=== PATIENT | female | born 1985 | race American Indian/Alaskan Native ===

== ENCOUNTER 2018-05-17 17:26 | Inpatient (IN) | payer SELFPAY ==
[2018-05-17] MEDS ORDERED: LACTATED RINGERS 1,000 ML ONE (17:59)
[2018-05-17] MEDS ORDERED: STADOL ONE (18:10)
[2018-05-17] MEDS ORDERED: SUBLIMAZE IV PRN (18:11)
[2018-05-17] MEDS ORDERED: STADOL IV PRN (18:11)
[2018-05-17] MEDS ORDERED: ZOFRAN IV PRN ×2 (18:11→20:01)
[2018-05-17] MEDS ORDERED: XYLOCAINE 2% INFILTRATI ONE (18:11)
[2018-05-17] MEDS ORDERED: MINERAL OIL PO PRN (18:11)
[2018-05-17] MEDS ORDERED: BRETHINE IVP PRN (18:11)
[2018-05-17] MEDS ORDERED: BRETHINE SUB-Q PRN (18:11)
--- NOTE | 2018-05-17 18:11 | History and Physical Report ---
History of Present Illness Date of examination: 05/17/18 Date of admission: 05/17/18 17:54 Chief complaint: Labor History of present illness: Pt is a 32yo BF EDC 05/24/18; EGA 39 0/7 weeks presents to L&D complaining of RUC's q 3-4 mins. She received late care at [facility] since 31 weeks and course has been unremarkable. records are available and GBS is Negative. Past History Past Medical History: no pertinent history Past Surgical History: no surgical history Social history: no significant social history, single - Obstetrical History Expected Date of Delivery: 05/24/18 Actual Gestation: 39 Week(s) 0 Day(s) : 2 Review of Systems All systems: negative - Vital Signs Vital signs: Vital Signs Temp Pulse Resp BP 98.3 F 90 22 135/90 05/17/18 17:33 05/17/18 17:33 05/17/18 17:33 05/17/18 17:33 Temp Pulse Resp BP Pulse Ox 98.3 F 90 22 135/90 05/17/18 17:33 05/17/18 17:33 05/17/18 17:33 05/17/18 17:33 - Physical Exam Breasts: Positive: deferred Cardiovascular: Regular rate Lungs: Positive: Clear to auscultation Abdomen: Positive: normal appearance Genitourinary (Female): Positive: normal external genitalia Vagina: Positive: normal moisture Uterus: Positive: enlarged Extremities: Positive: normal - Obstetrical FHR: category 1 Uterine Contraction Monitor Mode: External Cervical Dilatation: 8 (per nurse) Cervical Effacement Percentage: 100 (per nurse) station: -1 Uterine Contraction Pattern: Regular Uterine Tone Measurement Phase: Contraction Uterine Contraction Intensity: Strong/Firm Results All other labs normal. Assessment and Plan - Patient Problems (1) 39 weeks gestation of Onset Date: 05/17/18 Current Visit: Yes Status: Acute Plan to address problem: A: IUP @ 39 0/7 weeks in labor Insufficient care P: Admit to L&D for expectant vaginal delivery. (2) Insufficient care in third trimester Onset Date: 05/17/18 Current Visit: Yes Status: Acute
[2018-05-17 18:29] LABS: Hematocrit 40.4 % (30.3-42.9); Hemoglobin 13.6 gm/dl (10.1-14.3); Mean Corpuscular HGB Conc 34 % (30-34); Mean Corpuscular Volume 90 fl (79-97); Platelet Count 158 K/mm3 (140-440); Red Blood Count 4.47 M/mm3 (3.65-5.03); Red Cell Distribution Width 14.4 % (13.2-15.2)
[2018-05-17] MEDS ORDERED: LACTATED RINGERS 1,000 ML IV SCH (19:00)
[2018-05-17] MEDS ORDERED: PITOCin/NS 20 UNIT/1000ML DRIP 20 UNITS/1,000 ML BAG IV SCH ×2 (19:00→21:00)
[2018-05-17] MEDS ORDERED: PITOCin/NS 30 UNIT/500ML 30 UNITS/500 ML BAG IV SCH (19:00)
--- NOTE | 2018-05-17 19:59 | Procedure Note ---
OB Delivery Note - Delivery Date of Delivery: 05/17/18 Surgeon: SATNINO ANDREWS Estimated blood loss: 100cc - Vaginal Delivery presentation: vertex Delivery position: OA Intrapartum events: precipitous labor- <3hr Delivery induction: none Delivery augmentation: rupture of membranes Delivery monitor: external FHT, external uterine Route of delivery: Delivery placenta: spontaneous Delivery cord: 3 umbilical vessels Episiotomy: none Delivery laceration: 2nd degree (perineal) Delivery repair: vicryl Anesthesia: local Delivery comments: delivered OA and placed on Mom's chest for [id number] bonding and delayed cord clamping - A at 1 minute: 8 at 5 minutes: 9 Gender: Female (3287gms)
[2018-05-17] MEDS ORDERED: LANSINOH TP PRN (20:01)
[2018-05-17] MEDS ORDERED: TYLENOL PO PRN (20:01)
[2018-05-17] MEDS ORDERED: MILK OF MAGNESIA PO PRN (20:01)
[2018-05-17] MEDS ORDERED: DULCOLAX PR PRN (20:01)
[2018-05-17] MEDS ORDERED: PHENERGAN PR PRN (20:01)
[2018-05-17] MEDS ORDERED: TUCKS PAD TP PRN (20:01)
[2018-05-17] MEDS ORDERED: BENADRYL PO PRN (20:01)
[2018-05-17] MEDS ORDERED: PHENERGAN PO PRN (20:01)
[2018-05-17] MEDS ORDERED: NORCO 5/325 PO PRN (20:01)
[2018-05-17] MEDS ORDERED: SODIUM CHLORIDE FLUSH SYRINGE 10 ML IV SCH (21:00)
[2018-05-17] MEDS: IBUPROFEN PO SCH (21:00)
[2018-05-17] MEDS: FEOSOL PO SCH (22:00)
[2018-05-18] MEDS: DERMOPLAST TP PRN ×2 (04:10→21:59)
[2018-05-18] MEDS: IBUPROFEN PO SCH ×4 (04:10→20:27)
[2018-05-18] MEDS ORDERED: BOOSTRIX IM ONE (06:00)
[2018-05-18 08:38] LABS: Hematocrit 30.8 % (30.3-42.9); Hemoglobin 10.4 gm/dl (10.1-14.3)
[2018-05-18] MEDS: FEOSOL PO SCH ×2 (09:18→22:00)
[2018-05-18] MEDS ORDERED: PRENATAL VITAMIN PO SCH (10:00)
--- NOTE | 2018-05-18 12:40 | Progress Note ---
Assessment and Plan - Patient Problems (1) 39 weeks gestation of Onset Date: 05/17/18 Current Visit: Yes Status: Resolved (2) Insufficient care in third trimester Onset Date: 05/17/18 Current Visit: Yes Status: Resolved (3) (normal spontaneous vaginal delivery) Onset Date: 05/18/18 Current Visit: Yes Status: Resolved Plan to address problem: A: S/P - PPD #1 Doing well Asymptomatic anemia - stable P: May go home tomorrow. (4) Acute blood loss anemia Onset Date: 05/18/18 Current Visit: Yes Status: Resolved Subjective - Subjective Date of service: 05/18/18 Principal diagnosis: s/p - PPD #1 Interval history: Pt is feeling well without complaints. Bleeding improved. Patient reports: appetite normal, voiding normally, pain well controlled, fla tus, ambulating normally, no dizzy ambulation, no nauseated [place]: doing well, bottle feeding Objective - Vital Signs Latest vital signs: Vital Signs Temp Pulse Resp BP BP Pulse Ox 05/18/18 09:55 98.2 F 84 20 119/79 05/18/18 04:40 98.1 F 68 20 102/63 100 05/17/18 23:40 98.2 F 84 20 118/71 100 05/17/18 21:12 90 147/82 05/17/18 20:57 93 H 144/87 05/17/18 20:42 92 H 142/83 05/17/18 20:27 89 156/76 05/17/18 20:16 100 H 159/79 05/17/18 19:57 95 H 121/70 05/17/18 19:21 90 149/89 05/17/18 19:19 78 140/86 05/17/18 18:45 98.3 F 05/17/18 17:33 98.3 F 90 22 135/90 135/90 Intake and Output 05/17/18 05/18/18 05/18/18 22:59 06:59 14:59 Intake Total 120 Output Total 200 600 Balance -200 -600 120 Intake: Oral 120 Output: Urine 200 600 Void 200 600 Other: Total, Intake Amount 120 Total, Output Amount 200 600 Weight 75.75 kg Estimated Blood Loss 100 - Exam Breasts: Present: deferred Abdomen: Present: normal appearance, soft Uterus: Present: normal, firm, fundal height below umbilicus Extremities: Present: normal - Labs Labs: Laboratory Tests 05/17/18 05/17/18 05/17/18 18:14 18:14 18:14 WBC 8.4 RBC 4.47 Hgb 13.6 Hct 40.4 MCV 90 MCH 31 MCHC 34 RDW 14.4 Plt Count 158 RPR Nonreactive Blood Type B POSITIVE Antibody Screen Negative 05/18/18 08:06 WBC RBC Hgb 10.4 D Hct 30.8 D MCV MCH MCHC RDW Plt Count RPR Blood Type Antibody Screen
[2018-05-18] MEDS ORDERED: M-M-R II VACCINE SUB-Q ONE (20:01)
--- NOTE | 2018-05-19 12:22 | Discharge Summary ---
Providers - Providers Date of Admission: 05/17/18 17:54 Date of discharge: 05/19/18 Attending physician: SANTINO ANDREWS Primary care physician: SANTINO ANDREWS Hospitalization Reason for admission: active labor, IUP at term Delivery: Episiotomy: none Laceration: 2nd degree Other procedures: none complications: none Discharge diagnosis: IUP at term delivered [place] baby: female Hospital course: Unremarkable. Condition at discharge: Good Disposition: DC-01 TO HOME OR SELFCARE - Discharge Diagnoses (1) 39 weeks gestation of Status: Resolved (2) Insufficient care in third trimester Status: Resolved (3) (normal spontaneous vaginal delivery) Status: Resolved (4) Acute blood loss anemia Status: Resolved Plan - Discharge Medications Prescriptions: Ferrous Sulfate [Feosol 325 MG tab] 325 mg PO BID #60 tablet Ibuprofen [Motrin 600 MG tab] 600 mg PO Q6HR #30 tablet Vit-Fe Fumar-FA [ Vitamin] 1 each PO QDAY #30 tablet - Provider Discharge Summary Activity: routine, no sex for 6 weeks, no heavy lifting 4 weeks, no strenuous exercise Diet: routine Instructions: routine Additional instructions: [] Smoking cessation referral if applicable(refer to patient education folder for contact #) [] Refer to [facility]'s [facility] Booklet Call your doctor immediately for: * Fever > 100.5 * Heavy vaginal bleeding ( >1 pad per hour) * Severe persistent headache * Shortness of breath * Reddened, hot, painful area to leg or breast * Drainage or odor from incision. * Keep incision clean and dry at all times and follow doctor's instructions regarding bathing/showering - Follow up plan Follow up: SANTINO ANDREWS MD [Primary Care Provider] - 6 Weeks Forms: [facility] Discharge Summary, Discharge Signature Page
[2018-05-19 17:41] VITALS: BP 126/80
== END 2018-05-19 18:00 | disposition home or self-care (01) | DRG 806 ==
LOC: TRG 17:26 → LD 17:27 → TRG 17:53 → LD 17:54 → OB 22:49
PROVIDERS: ADMIT Obstetrics & Gynecology; ATTEND Obstetrics & Gynecology
PROC: 10E0XZZ Delivery of Products of Conception, External Approach (ICD-10-PCS; principal; 2018-05-17)
PROC: 0KQM0ZZ Repair Perineum Muscle, Open Approach (ICD-10-PCS; 2018-05-18)
DX: O62.3 Precipitate labor (principal); D62 Acute posthemorrhagic anemia; Z37.0 Single live birth; O99.02 Anemia complicating childbirth; O70.1 Second degree perineal laceration during delivery; Z3A.39 39 weeks gestation of pregnancy; O09.33 Supervision of pregnancy with insufficient antenatal care, third trimester
CPT/HCPCS: 36415; 85014; 85018; 85027; 86592; 86850; 86900; 86901; G0378; A6250; J0595; J2590; J7120